=== PATIENT | male | born 1965 | race Caucasian/White ===

== ENCOUNTER 2018-06-03 11:27 | Inpatient (IN) | payer MEDICARE, MEDICAID ==
[~2018-06-03] VITALS: Ht 177.8 cm; Wt 97.7 kg
[2018-06-03] MEDS ORDERED: normal saline 1000ML IV soln IVB ONE (11:35)
[2018-06-03] MEDS ORDERED: piperacillin/tazo 3.375gm/50ml 50 ML IV ONE (11:47)
[2018-06-03] MEDS ORDERED: morphine 4 MG/ML inj SYRINge IV ONE (12:55)
[2018-06-03] MEDS ORDERED: lisinopril 10 MG tablet PO ONE (12:55)
[2018-06-03] MEDS ORDERED: ondansetron/PF 4mg/2ml inj IV ONE (12:55)
[2018-06-03 13:14] LABS: BASOPHILS # (AUTO) 0.1 X10'3 (0-0.2); EOSINOPHILS # (AUTO) 0.2 X10'3 (0-0.9); EOSINOPHILS % (AUTO) 1.6 % (0-6); HEMATOCRIT 43.9 % (42.0-52.0); HEMOGLOBIN 15.4 g/dl (14.0-17.9); LYMPHOCYTES # (AUTO) 2.1 X10'3 (1.1-4.8); LYMPHOCYTES % (AUTO) 19.2 % (21-51); MEAN CORPUSCULAR HEMOGLOBIN 31.1 PG (27.0-31.0); MEAN CORPUSCULAR HGB CONC 35.1 % (33.0-36.5); MEAN CORPUSCULAR VOLUME 88.6 FL (78-98); MEAN PLATELET VOLUME 6.9 FL (7.4-10.4); MONOCYTES # (AUTO) 0.7 X10'3 (0-0.9); MONOCYTES % (AUTO) 6.2 % (2-12); PLATELET COUNT 175 X10'3 (140-440); RED BLOOD COUNT 4.95 X10'6 (4.70-6.10); RED CELL DISTRIBUTION WIDTH 12.4 % (11.5-14.5); WHITE BLOOD COUNT 11.1 X10'3 (4.5-11.0)
[2018-06-03 13:24] LABS: PARTIAL THROMBOPLASTIN TIME 26 SECONDS (22-32); PROTHROMBIN TIME 10.3 SECONDS (9.0-12.0)
[2018-06-03 13:28] LABS: ALANINE AMINOTRANSFERASE 47 U/L (12-78); ALBUMIN 3.2 G/DL (3.4-5.0); ALKALINE PHOSPHATASE 57 IU/L (46-116); ANION GAP 10 (8-16); ASPARTATE AMINO TRANSFERASE 28 U/L (10-37); BILIRUBIN,TOTAL 0.6 MG/DL (0.1-1.0); BLOOD UREA NITROGEN 8 MG/DL (7-18); BUN/CREATININE RATIO 10.1 (5.4-32.0); CALCIUM 8.3 MG/DL (8.5-10.1); CHLORIDE 104 MMOL/L (99-107); CREATININE 0.79 MG/DL (0.60-1.10); GLUCOSE 139 MG/DL (70-104); MAGNESIUM 1.9 MG/DL (1.5-2.4); SODIUM 137 MMOL/L (135-145); TOTAL CARBON DIOXIDE 22.6 MMOL/L (24-32); TOTAL PROTEIN 6.5 G/DL (6.4-8.2); eGFR > 90 ML/MIN
[2018-06-03 13:59] LABS: CLARITY,URINE CLEAR (Clear); COLOR,URINE YELLOW (Yellow); GLUCOSE, URINE NEGATIVE (Neg); KETONES,URINE NEGATIVE (Neg); LEUKOCYTE ESTERASE ,URINE NEGATIVE (Neg); NITRITES, URINE NEGATIVE (Neg); OCCULT BLOOD,URINE NEGATIVE (Neg); PH,URINE 5.5 (4.8-8.0); PROTEIN,URINE NEGATIVE (Neg); UROBILINOGEN,URINE 0.2 E.U/dL (0.2-1.0)
[2018-06-03 14:00] LABS: UA COLLECTION TYPE CLN CATCH MIDSTREAM
[2018-06-03] MEDS ORDERED: dextrose ORAL solution 15 GM/59 ML bottle PO PRN ×2 (15:20)
[2018-06-03] MEDS ORDERED: morphine 4 MG/ML inj SYRINge IV PRN (15:20)
[2018-06-03] MEDS: K and/or MAG REPLACEMENT MC SCH (15:20)
[2018-06-03] MEDS ORDERED: magnesium hydroxide 30ml (MOM) UD suspension PO PRN (15:20)
[2018-06-03] MEDS ORDERED: magnesium 1gm/100ml D5W IVPB 100 ML IV PRN (15:20)
[2018-06-03] MEDS ORDERED: ondansetron/PF 4mg/2ml inj IV PRN (15:20)
[2018-06-03] MEDS ORDERED: magnesium Cl slow-release 64mg tablet PO PRN (15:20)
[2018-06-03] MEDS ORDERED: acetaminophen 325mg tablet PO PRN ×2 (15:20)
[2018-06-03] MEDS ORDERED: glucagon, human recombinant 1mg kit SUBCUT PRN (15:20)
[2018-06-03] MEDS ORDERED: insulin Lispro (HumaLOG) vial - multi-dose SQ SCH (15:20)
[2018-06-03] MEDS ORDERED: magnesium 4gm in 100ml NS 100 ML IV PRN (15:20)
[2018-06-03] MEDS ORDERED: potassium Cl 40MEQ/NS 500ml 500 ML IV PRN ×2 (15:20)
[2018-06-03] MEDS ORDERED: diphenhydrAMINE 25mg capsule PO PRN (15:20)
[2018-06-03] MEDS ORDERED: dextrose 50%-water 50ml dispensing syringe IV PRN ×2 (15:20)
[2018-06-03] MEDS ORDERED: mag hydrox/Alum hydrox/simeth 30ml oral suspension PO PRN (15:20)
[2018-06-03] MEDS ORDERED: potassium Cl 20 mEq SR tablet PO PRN ×2 (15:20)
[2018-06-03] MEDS ORDERED: MESSAGE TO PHARMACY PO ONE (15:20)
[2018-06-03 15:53] LABS: HEMOGLOBIN A1C 6.5 % (4.5-6.2)
[2018-06-03] MEDS: vancomycin inj 1,250 MG in normal saline 250ml IV soln 250 ML IV SCH (15:54)
[2018-06-03] MEDS: normal saline 1000ml 1,000 ML IV SCH (15:55)
[2018-06-03] MEDS ORDERED: GABA-532 PO (16:14)
[2018-06-03] MEDS ORDERED: LISI10TA4 PO (16:14)
[2018-06-03] MEDS ORDERED: METF500T6 PO (16:14)
[2018-06-03 20:00] VITALS: BP 128/78
[2018-06-03] MEDS: insulin glargine (Lantus) pen - multi-dose SQ SCH (21:00)
[2018-06-03] MEDS: piperacillin/tazo 3.375gm/50ml 50 ML IV SCH (21:04)
[2018-06-03] MEDS: gabapentin 300mg capsule PO SCH (21:05)
[2018-06-04] VITALS: BP 128/72
[2018-06-04] MEDS: vancomycin inj 1,250 MG in normal saline 250ml IV soln 250 ML IV SCH ×2 (00:40→09:19)
[2018-06-04] MEDS: normal saline 1000ml 1,000 ML IV SCH ×2 (01:16→11:27)
[2018-06-04] MEDS: piperacillin/tazo 3.375gm/50ml 50 ML IV SCH ×4 (02:43→20:37)
[2018-06-04 05:34] LABS: BASOPHILS % (AUTO) 0.2 % (0-1); EOSINOPHILS # (AUTO) 0.2 X10'3 (0-0.9); EOSINOPHILS % (AUTO) 2.4 % (0-6); HEMATOCRIT 41.9 % (42.0-52.0); HEMOGLOBIN 14.5 g/dl (14.0-17.9); LYMPHOCYTES # (AUTO) 2.3 X10'3 (1.1-4.8); LYMPHOCYTES % (AUTO) 21.9 % (21-51); MEAN CORPUSCULAR HGB CONC 34.7 % (33.0-36.5); MEAN CORPUSCULAR VOLUME 89.4 FL (78-98); MEAN PLATELET VOLUME 6.9 FL (7.4-10.4); MONOCYTES # (AUTO) 0.6 X10'3 (0-0.9); MONOCYTES % (AUTO) 6.2 % (2-12); NEUTROPHILS # (AUTO) 7.1 X10'3 (1.8-7.7); NEUTROPHILS % (AUTO) 69.3 % (42-75); PLATELET COUNT 197 X10'3 (140-440); RED BLOOD COUNT 4.68 X10'6 (4.70-6.10); RED CELL DISTRIBUTION WIDTH 12.6 % (11.5-14.5); WHITE BLOOD COUNT 10.3 X10'3 (4.5-11.0)
[2018-06-04 06:01] LABS: ALANINE AMINOTRANSFERASE 45 U/L (12-78); ALBUMIN 2.9 G/DL (3.4-5.0); ALBUMIN/GLOBULIN RATIO 0.9 (1.1-1.5); ALKALINE PHOSPHATASE 51 IU/L (46-116); ANION GAP 9 (8-16); ASPARTATE AMINO TRANSFERASE 22 U/L (10-37); BILIRUBIN,TOTAL 0.6 MG/DL (0.1-1.0); BLOOD UREA NITROGEN 8 MG/DL (7-18); BUN/CREATININE RATIO 8.4 (5.4-32.0); CALCIUM 8.2 MG/DL (8.5-10.1); CHLORIDE 105 MMOL/L (99-107); CHOL/HDL RATIO 3.4 (0.00-4.99); CHOLESTEROL 99 MG/DL (0-200); CREATININE 0.95 MG/DL (0.60-1.10); GLUCOSE 122 MG/DL (70-104); HDL CHOLESTEROL 29 MG/DL (35-60); LDL CHOLESTEROL 63 MG/DL (50-100); MAGNESIUM 1.6 MG/DL (1.5-2.4); PHOSPHORUS 3.4 MG/DL (2.3-4.5); POTASSIUM 4.1 MMOL/L (3.5-5.1); SODIUM 138 MMOL/L (135-145); TOTAL CARBON DIOXIDE 23.9 MMOL/L (24-32); TOTAL PROTEIN 6.2 G/DL (6.4-8.2); TRIGLYCERIDES 65 MG/DL (20-135); eGFR 84 ML/MIN
[2018-06-04] MEDS: lisinopril 10 MG tablet PO SCH (07:51)
[2018-06-04] MEDS: gabapentin 300mg capsule PO SCH ×3 (07:51→20:37)
[2018-06-04] MEDS: enoxaparin 40mg/0.4ml syringe SUBCUT SCH (07:52)
[2018-06-04] MEDS: K and/or MAG REPLACEMENT MC SCH (08:00)
[2018-06-04] MEDS: HYDROcodone/acetaminophen 5mg/325mg tablet PO PRN ×2 (08:04→17:04)
[2018-06-04 08:17] VITALS: BP 129/74
[2018-06-04 11:40] VITALS: BP 117/68
[2018-06-04] MEDS ORDERED: VANCOMYCIN LEVEL IV ONE (15:30)
[2018-06-04 20:00] VITALS: BP 126/81
[2018-06-04] MEDS: insulin glargine (Lantus) pen - multi-dose SQ SCH (20:31)
[2018-06-04] MEDS: lactobacillus rhamnosus 10,000 MMU CELLS/CAPSULE PO SCH (20:37)
[2018-06-05] VITALS: BP 127/81
[2018-06-05] MEDS: normal saline 1000ml 1,000 ML IV SCH ×2 (00:12→07:16)
[2018-06-05] MEDS: HYDROcodone/acetaminophen 5mg/325mg tablet PO PRN ×2 (00:15→04:55)
[2018-06-05] MEDS: piperacillin/tazo 3.375gm/50ml 50 ML IV SCH ×2 (04:48→09:03)
[2018-06-05 07:09] VITALS: BP 137/89
[2018-06-05 07:35] LABS: BASOPHILS # (AUTO) 0.1 X10'3 (0-0.2); BASOPHILS % (AUTO) 0.9 % (0-1); EOSINOPHILS # (AUTO) 0.3 X10'3 (0-0.9); EOSINOPHILS % (AUTO) 3.9 % (0-6); HEMATOCRIT 43.8 % (42.0-52.0); HEMOGLOBIN 14.7 g/dl (14.0-17.9); LYMPHOCYTES # (AUTO) 1.8 X10'3 (1.1-4.8); LYMPHOCYTES % (AUTO) 21.6 % (21-51); MEAN CORPUSCULAR HEMOGLOBIN 29.7 PG (27.0-31.0); MEAN CORPUSCULAR HGB CONC 33.5 % (33.0-36.5); MEAN CORPUSCULAR VOLUME 88.7 FL (78-98); MONOCYTES # (AUTO) 0.5 X10'3 (0-0.9); MONOCYTES % (AUTO) 6.4 % (2-12); NEUTROPHILS # (AUTO) 5.6 X10'3 (1.8-7.7); NEUTROPHILS % (AUTO) 67.2 % (42-75); PLATELET COUNT 220 X10'3 (140-440); RED BLOOD COUNT 4.94 X10'6 (4.70-6.10); RED CELL DISTRIBUTION WIDTH 11.9 % (11.5-14.5); WHITE BLOOD COUNT 8.3 X10'3 (4.5-11.0)
[2018-06-05 07:52] LABS: ALANINE AMINOTRANSFERASE 49 U/L (12-78); ALBUMIN/GLOBULIN RATIO 0.9 (1.1-1.5); ALKALINE PHOSPHATASE 46 IU/L (46-116); ANION GAP 7 (8-16); ASPARTATE AMINO TRANSFERASE 33 U/L (10-37); BILIRUBIN,TOTAL 0.7 MG/DL (0.1-1.0); BLOOD UREA NITROGEN 8 MG/DL (7-18); BUN/CREATININE RATIO 8.7 (5.4-32.0); CALCIUM 8.3 MG/DL (8.5-10.1); CHLORIDE 106 MMOL/L (99-107); CREATININE 0.92 MG/DL (0.60-1.10); GLUCOSE 116 MG/DL (70-104); MAGNESIUM 1.8 MG/DL (1.5-2.4); PHOSPHORUS 2.9 MG/DL (2.3-4.5); POTASSIUM 4.1 MMOL/L (3.5-5.1); SODIUM 138 MMOL/L (135-145); TOTAL CARBON DIOXIDE 25.1 MMOL/L (24-32); TOTAL PROTEIN 6.5 G/DL (6.4-8.2); eGFR 87 ML/MIN
[2018-06-05] MEDS: K and/or MAG REPLACEMENT MC SCH (08:00)
[2018-06-05] MEDS: lisinopril 10 MG tablet PO SCH (09:01)
[2018-06-05] MEDS: lactobacillus rhamnosus 10,000 MMU CELLS/CAPSULE PO SCH (09:01)
[2018-06-05] MEDS: gabapentin 300mg capsule PO SCH ×2 (09:01→13:00)
[2018-06-05] MEDS: enoxaparin 40mg/0.4ml syringe SUBCUT SCH (09:04)
[2018-06-05] MEDS ORDERED: CLIN-5 PO (10:30)
[2018-06-05 11:00] VITALS: BP 160/76
[2018-06-05] MEDS ORDERED: VANCOMYCIN LEVEL IV ONE (16:30)
== END 2018-06-05 13:50 | disposition home or self-care (01) | DRG 603 ==
LOC: ER 11:27 → ED HOLD 15:16 → EDBEDREQ 18:29 → SUR 3N 19:05
PROVIDERS: ADMIT Family Medicine; ATTEND Internal Medicine
DX: L03.114 Cellulitis of left upper limb (principal); F15.10 Other stimulant abuse, uncomplicated; E11.40 Type 2 diabetes mellitus with diabetic neuropathy, unspecified; I10 Essential (primary) hypertension; B19.20 Unspecified viral hepatitis C without hepatic coma; L03.012 Cellulitis of left finger; F17.200 Nicotine dependence, unspecified, uncomplicated; Z88.1 Allergy status to other antibiotic agents; Z79.899 Other long term (current) drug therapy; Z79.84 Long term (current) use of oral hypoglycemic drugs; Z87.442 Personal history of urinary calculi; Z80.7 Family history of other malignant neoplasms of lymphoid, hematopoietic and related tissues; Z71.6 Tobacco abuse counseling; Z71.51 Drug abuse counseling and surveillance of drug abuser
CPT/HCPCS: 36415; 71045; 80053; 80061; 80202; 81003; 82948; 83036; 83605; 83735; 84100; 84145; 85025; 85610; 85730; 87040; 87070; 93005; 93971; 96365; 96366; 96375; 99285; J1650; J1815; J2270; J2405; J2543; J3370; J7030

== ENCOUNTER 2019-12-29 02:43 | Emergency (ER) | payer MEDICARE, MEDICAID ==
[~2019-12-29] VITALS: Ht 177.8 cm; Wt 100.0 kg
[~2019-12-29 02:43] MED LIST: CLIN-5 PO; GABA-532 PO; LISI10TA4 PO; METF-950 PO
[2019-12-29] MEDS ORDERED: levoFLOXACIN 750MG TABLET PO ONE ×2 (03:20→03:30)
[2019-12-29 03:26] VITALS: BP 166/119
[2019-12-29] MEDS ORDERED: METH4TAB81 PO (03:37)
[2019-12-29] MEDS ORDERED: LEVO750T21 PO (03:37)
[2019-12-29] MEDS ORDERED: ALBU6.7H9 INH (03:37)
== END 2019-12-29 03:43 | disposition home or self-care (01) ==
LOC: ER 02:44
DX: J20.9 Acute bronchitis, unspecified (principal); F15.10 Other stimulant abuse, uncomplicated; Z86.19 Personal history of other infectious and parasitic diseases; Z72.89 Other problems related to lifestyle; Z79.2 Long term (current) use of antibiotics; Z79.899 Other long term (current) drug therapy; Z98.890 Other specified postprocedural states
CPT/HCPCS: 71046; 99283

== ENCOUNTER 2020-02-27 12:46 | Emergency (ER) | payer MEDICARE, MEDICAID ==
[~2020-02-27] VITALS: Ht 177.8 cm; Wt 97.0 kg
[~2020-02-27 12:46] MED LIST changes: +ALBU6.7H9 INH; +METH4TAB81 PO
[2020-02-27] MEDS ORDERED: ketorolac trometh. 30mg/ml inj. IV ONE (13:05)
[2020-02-27] MEDS ORDERED: ondansetron/PF 4mg/2ml inj IV ONE (13:05)
[2020-02-27 13:40] LABS: CLARITY,URINE SLIGHTLY CLOUDY (Clear); COLOR,URINE YELLOW (Yellow); GLUCOSE, URINE 100 mg/dl (Neg); KETONES,URINE NEGATIVE (Neg); LEUKOCYTE ESTERASE ,URINE TRACE (Neg); NITRITES, URINE NEGATIVE (Neg); OCCULT BLOOD,URINE LARGE (Neg); PH,URINE 6.5 (4.8-8.0); PROTEIN,URINE NEGATIVE (Neg)
[2020-02-27 13:41] LABS: UA COLLECTION TYPE VOIDED
[2020-02-27 13:48] LABS: BASOPHILS # (AUTO) 0.1 X10'3 (0-0.2); BASOPHILS % (AUTO) 0.6 % (0-1); EOSINOPHILS # (AUTO) 0.3 X10'3 (0-0.9); EOSINOPHILS % (AUTO) 3.1 % (0-6); HEMATOCRIT 46.7 % (42.0-52.0); HEMOGLOBIN 16.2 g/dl (14.0-17.9); LYMPHOCYTES % (AUTO) 19.2 % (21-51); MEAN CORPUSCULAR HGB CONC 34.7 g/dL (33.0-36.5); MEAN CORPUSCULAR VOLUME 86.5 FL (78-98); MEAN PLATELET VOLUME 6.8 FL (7.4-10.4); MONOCYTES # (AUTO) 0.8 X10'3 (0-0.9); MONOCYTES % (AUTO) 7.5 % (2-12); NEUTROPHILS # (AUTO) 7.2 X10'3 (1.8-7.7); NEUTROPHILS % (AUTO) 69.6 % (42-75); PLATELET COUNT 246 X10'3 (140-440); RED BLOOD COUNT 5.41 X10'6 (4.70-6.10); WHITE BLOOD COUNT 10.4 X10'3 (4.5-11.0)
[2020-02-27 13:49] LABS: MUCUS STRANDS FEW /LPF (Neg); SQUAMOUS EPITHELIAL CELL,UR FEW /LPF (FEW)
[2020-02-27 13:50] LABS: RBC,URINE TNTC /HPF (0-2)
[2020-02-27 13:51] LABS: BACTERIA,URINE FEW /HPF (Neg)
[2020-02-27 13:56] LABS: ALANINE AMINOTRANSFERASE 68 U/L (12-78); ALBUMIN/GLOBULIN RATIO 1.1 (1.1-1.5); ALKALINE PHOSPHATASE 81 IU/L (46-116); ANION GAP 7 (8-16); ASPARTATE AMINO TRANSFERASE 44 U/L (10-37); BILIRUBIN,TOTAL 0.6 MG/DL (0.1-1.0); BLOOD UREA NITROGEN 12 MG/DL (7-18); BUN/CREATININE RATIO 11.3 (5.4-32.0); CALCIUM 9.2 MG/DL (8.5-10.1); CHLORIDE 102 MMOL/L (99-107); CREATININE 1.06 MG/DL (0.60-1.10); GLUCOSE 175 MG/DL (70-104); POTASSIUM 3.7 MMOL/L (3.5-5.1); SODIUM 139 MMOL/L (135-145); TOTAL CARBON DIOXIDE 30.3 MMOL/L (24-32); TOTAL PROTEIN 7.5 G/DL (6.4-8.2); eGFR 73 ML/MIN
[2020-02-27] MEDS ORDERED: ONDA8TAB6 PO (14:10)
[2020-02-27] MEDS ORDERED: CEPH250T PO (14:10)
[2020-02-27] MEDS ORDERED: HYDR-3965 PO (14:10)
[2020-02-27] MEDS ORDERED: cephalexin 250mg capsule PO ONE (14:10)
[2020-02-27 14:30] VITALS: BP 152/101
== END 2020-02-27 14:35 | disposition home or self-care (01) ==
LOC: ER 12:46
DX: R10.9 Unspecified abdominal pain (principal); F15.90 Other stimulant use, unspecified, uncomplicated; Z86.19 Personal history of other infectious and parasitic diseases; Z98.890 Other specified postprocedural states; Z79.2 Long term (current) use of antibiotics; Z88.1 Allergy status to other antibiotic agents; Z79.899 Other long term (current) drug therapy
CPT/HCPCS: 36415; 80053; 81001; 85025; 87088; 96374; 96375; 99284; J1885; J2405

== ENCOUNTER 2020-03-13 20:50 | Emergency (ER) | payer MEDICARE, MEDICAID ==
[~2020-03-13] VITALS: Ht 177.8 cm; Wt 97.7 kg
[~2020-03-13 20:50] MED LIST changes: +HYDR-3965 PO; +ONDA8TAB6 PO
[2020-03-13 20:53] VITALS: BP 183/111
[2020-03-13] MEDS ORDERED: nitroGLYCERIN 0.4mg SUBLingual tab SL PRN (21:10)
[2020-03-13 21:23] LABS: BASOPHILS # (AUTO) 0.1 X10'3 (0-0.2); BASOPHILS % (AUTO) 0.3 % (0-1); EOSINOPHILS # (AUTO) 0.4 X10'3 (0-0.9); EOSINOPHILS % (AUTO) 2.4 % (0-6); HEMATOCRIT 44.6 % (42.0-52.0); HEMOGLOBIN 15.6 g/dl (14.0-17.9); LYMPHOCYTES # (AUTO) 2.3 X10'3 (1.1-4.8); LYMPHOCYTES % (AUTO) 15.5 % (21-51); MEAN CORPUSCULAR HEMOGLOBIN 30.2 PG (27.0-31.0); MEAN CORPUSCULAR VOLUME 86.3 FL (78-98); MEAN PLATELET VOLUME 6.9 FL (7.4-10.4); MONOCYTES # (AUTO) 0.7 X10'3 (0-0.9); MONOCYTES % (AUTO) 4.9 % (2-12); NEUTROPHILS # (AUTO) 11.6 X10'3 (1.8-7.7); NEUTROPHILS % (AUTO) 76.9 % (42-75); PLATELET COUNT 225 X10'3 (140-440); RED BLOOD COUNT 5.17 X10'6 (4.70-6.10); RED CELL DISTRIBUTION WIDTH 12.4 % (11.5-14.5)
[2020-03-13] MEDS ORDERED: ketorolac trometh. 30mg/ml inj. IV ONE (21:25)
[2020-03-13] MEDS ORDERED: LORazepam 2 mg/ml vial IV ONE (21:25)
[2020-03-13 21:33] LABS: ALANINE AMINOTRANSFERASE 49 U/L (12-78); ALBUMIN 3.7 G/DL (3.4-5.0); ALBUMIN/GLOBULIN RATIO 1.1 (1.1-1.5); ALKALINE PHOSPHATASE 91 IU/L (46-116); ANION GAP 7 (8-16); ASPARTATE AMINO TRANSFERASE 31 U/L (10-37); BILIRUBIN,TOTAL 0.4 MG/DL (0.1-1.0); BLOOD UREA NITROGEN 13 MG/DL (7-18); CALCIUM 9.4 MG/DL (8.5-10.1); CHLORIDE 103 MMOL/L (99-107); CREATININE 0.93 MG/DL (0.60-1.10); GLUCOSE 185 MG/DL (70-104); POTASSIUM 3.7 MMOL/L (3.5-5.1); SODIUM 140 MMOL/L (135-145); TOTAL CARBON DIOXIDE 30.4 MMOL/L (24-32); TOTAL PROTEIN 7.1 G/DL (6.4-8.2); eGFR 85 ML/MIN
[2020-03-13 21:48] LABS: D-DIMER 0.25 MG/L FEU (0-0.50)
== END 2020-03-13 22:37 | disposition home or self-care (01) ==
LOC: ER 20:50
DX: R07.89 Other chest pain (principal); R51 Headache; F17.210 Nicotine dependence, cigarettes, uncomplicated; F15.90 Other stimulant use, unspecified, uncomplicated; Z87.442 Personal history of urinary calculi; Z86.19 Personal history of other infectious and parasitic diseases; Z98.890 Other specified postprocedural states; Z72.89 Other problems related to lifestyle; Z88.1 Allergy status to other antibiotic agents; Z79.84 Long term (current) use of oral hypoglycemic drugs; Z79.899 Other long term (current) drug therapy
CPT/HCPCS: 36415; 71045; 80053; 82948; 84145; 84484; 85025; 85379; 93005; 96374; 96375; 99285; J1885; J2060

== ENCOUNTER 2020-04-29 10:53 | Emergency (ER) | payer MEDICARE, MEDICAID ==
[~2020-04-29] VITALS: Ht 177.8 cm; Wt 92.0 kg
[~2020-04-29 10:53] MED LIST changes: -HYDR-3965 PO
[2020-04-29 11:36] LABS: CLARITY,URINE SLIGHTLY CLOUDY (Clear); GLUCOSE, URINE 250 mg/dl (Neg); KETONES,URINE TRACE mg/dl (Neg); LEUKOCYTE ESTERASE ,URINE NEGATIVE (Neg); NITRITES, URINE NEGATIVE (Neg); OCCULT BLOOD,URINE LARGE (Neg); PH,URINE 6.5 (4.8-8.0); PROTEIN,URINE NEGATIVE (Neg)
[2020-04-29 11:37] LABS: COLOR,URINE DARK YELLOW (Yellow); UA COLLECTION TYPE CLN CATCH MIDSTREAM
[2020-04-29 11:44] LABS: BACTERIA,URINE FEW /HPF (Neg); MUCUS STRANDS FEW /LPF (Neg); RBC,URINE 50-100 /HPF (0-2); SQUAMOUS EPITHELIAL CELL,UR FEW /LPF (FEW); WBC,URINE 0-4 /HPF (0-4)
[2020-04-29 11:51] LABS: BASOPHILS % (AUTO) 0.3 % (0-1); EOSINOPHILS # (AUTO) 0.3 X10'3 (0-0.9); HEMATOCRIT 40.9 % (42.0-52.0); HEMOGLOBIN 14.3 g/dl (14.0-17.9); LYMPHOCYTES # (AUTO) 1.7 X10'3 (1.1-4.8); LYMPHOCYTES % (AUTO) 14.3 % (21-51); MEAN CORPUSCULAR HGB CONC 34.9 g/dL (33.0-36.5); MEAN CORPUSCULAR VOLUME 86.1 FL (78-98); MEAN PLATELET VOLUME 6.9 FL (7.4-10.4); MONOCYTES # (AUTO) 0.7 X10'3 (0-0.9); MONOCYTES % (AUTO) 6.5 % (2-12); NEUTROPHILS # (AUTO) 8.8 X10'3 (1.8-7.7); NEUTROPHILS % (AUTO) 75.9 % (42-75); PLATELET COUNT 214 X10'3 (140-440); RED BLOOD COUNT 4.75 X10'6 (4.70-6.10); RED CELL DISTRIBUTION WIDTH 12.5 % (11.5-14.5); WHITE BLOOD COUNT 11.6 X10'3 (4.5-11.0)
[2020-04-29 12:10] LABS: ALANINE AMINOTRANSFERASE 67 U/L (12-78); ALBUMIN 3.7 G/DL (3.4-5.0); ALBUMIN/GLOBULIN RATIO 1.1 (1.1-1.5); ALKALINE PHOSPHATASE 71 IU/L (46-116); ANION GAP 7 (8-16); ASPARTATE AMINO TRANSFERASE 44 U/L (10-37); BILIRUBIN,TOTAL 0.5 MG/DL (0.1-1.0); BLOOD UREA NITROGEN 18 MG/DL (7-18); BUN/CREATININE RATIO 13.4 (5.4-32.0); CALCIUM 8.8 MG/DL (8.5-10.1); CHLORIDE 105 MMOL/L (99-107); CREATININE 1.34 MG/DL (0.60-1.10); GLUCOSE 194 MG/DL (70-104); LIPASE 285 U/L (73-393); POTASSIUM 4.3 MMOL/L (3.5-5.1); SODIUM 138 MMOL/L (135-145); TOTAL CARBON DIOXIDE 26.4 MMOL/L (24-32); TOTAL PROTEIN 7.2 G/DL (6.4-8.2); eGFR 56 ML/MIN
[2020-04-29] MEDS ORDERED: ketorolac tromethamine 15mg/ml inj. IV ONE (12:10)
[2020-04-29] MEDS ORDERED: ACET-3068 PO (12:14)
[2020-04-29 13:22] VITALS: BP 143/92
== END 2020-04-29 13:23 | disposition home or self-care (01) ==
LOC: ER 10:53
DX: N20.0 Calculus of kidney (principal); F15.90 Other stimulant use, unspecified, uncomplicated; R10.9 Unspecified abdominal pain; Z86.19 Personal history of other infectious and parasitic diseases; Z72.89 Other problems related to lifestyle; Z79.2 Long term (current) use of antibiotics; Z79.899 Other long term (current) drug therapy
CPT/HCPCS: 36415; 80053; 81001; 83690; 85025; 96374; 99283; J1885

== ENCOUNTER 2020-05-04 20:25 | Emergency (ER) | payer MEDICARE, MEDICAID ==
[~2020-05-04] VITALS: Ht 177.8 cm; Wt 9.0 kg
[~2020-05-04 20:25] MED LIST changes: +ACET-3068 PO
[2020-05-04 21:18] LABS: BASOPHILS # (AUTO) 0.1 X10'3 (0-0.2); BASOPHILS % (AUTO) 0.7 % (0-1); EOSINOPHILS # (AUTO) 0.3 X10'3 (0-0.9); EOSINOPHILS % (AUTO) 2.3 % (0-6); HEMATOCRIT 42.4 % (42.0-52.0); HEMOGLOBIN 15.1 g/dl (14.0-17.9); LYMPHOCYTES % (AUTO) 15.1 % (21-51); MEAN CORPUSCULAR HEMOGLOBIN 30.3 PG (27.0-31.0); MEAN CORPUSCULAR HGB CONC 35.5 g/dL (33.0-36.5); MEAN CORPUSCULAR VOLUME 85.4 FL (78-98); MEAN PLATELET VOLUME 6.8 FL (7.4-10.4); MONOCYTES # (AUTO) 0.9 X10'3 (0-0.9); MONOCYTES % (AUTO) 6.6 % (2-12); NEUTROPHILS # (AUTO) 10.2 X10'3 (1.8-7.7); NEUTROPHILS % (AUTO) 75.3 % (42-75); PLATELET COUNT 237 X10'3 (140-440); RED BLOOD COUNT 4.97 X10'6 (4.70-6.10); RED CELL DISTRIBUTION WIDTH 12.9 % (11.5-14.5); WHITE BLOOD COUNT 13.6 X10'3 (4.5-11.0)
[2020-05-04 21:19] LABS: CLARITY,URINE SLIGHTLY CLOUDY (Clear); COLOR,URINE YELLOW (Yellow); GLUCOSE, URINE 500 mg/dl (Neg); KETONES,URINE NEGATIVE (Neg); LEUKOCYTE ESTERASE ,URINE NEGATIVE (Neg); NITRITES, URINE NEGATIVE (Neg); OCCULT BLOOD,URINE LARGE (Neg); PROTEIN,URINE TRACE mg/dl (Neg)
[2020-05-04 21:20] LABS: UA COLLECTION TYPE VOIDED
[2020-05-04 21:27] LABS: BACTERIA,URINE 1+ /HPF (Neg); RBC,URINE 20-50 /HPF (0-2); SQUAMOUS EPITHELIAL CELL,UR FEW /LPF (FEW); WBC,URINE 0-4 /HPF (0-4)
[2020-05-04 21:44] LABS: ALANINE AMINOTRANSFERASE 64 U/L (12-78); ALBUMIN 3.6 G/DL (3.4-5.0); ALKALINE PHOSPHATASE 69 IU/L (46-116); ANION GAP 9 (8-16); ASPARTATE AMINO TRANSFERASE 39 U/L (10-37); BILIRUBIN,TOTAL 0.5 MG/DL (0.1-1.0); BLOOD UREA NITROGEN 16 MG/DL (7-18); BUN/CREATININE RATIO 12.4 (5.4-32.0); CHLORIDE 100 MMOL/L (99-107); CREATININE 1.29 MG/DL (0.60-1.10); GLUCOSE 229 MG/DL (70-104); LIPASE 311 U/L (73-393); POTASSIUM 3.5 MMOL/L (3.5-5.1); SODIUM 133 MMOL/L (135-145); TOTAL CARBON DIOXIDE 24.4 MMOL/L (24-32); TOTAL PROTEIN 7.2 G/DL (6.4-8.2); eGFR 58 ML/MIN
[2020-05-04] MEDS ORDERED: normal saline 1000ML IV soln IVB ONE (22:30)
[2020-05-04] MEDS ORDERED: ondansetron/PF 4mg/2ml inj IV ONE (22:30)
[2020-05-04] MEDS ORDERED: morphine 4 MG/ML inj SYRINge IV ONE (22:30)
[2020-05-05] MEDS ORDERED: HYDR-4353 PO (00:01)
[2020-05-05 00:06] VITALS: BP 138/98
== END 2020-05-05 00:11 | disposition home or self-care (01) ==
LOC: ER 20:27
DX: N20.1 Calculus of ureter (principal); F15.90 Other stimulant use, unspecified, uncomplicated; Z86.19 Personal history of other infectious and parasitic diseases; Z88.8 Allergy status to other drugs, medicaments and biological substances; Z79.899 Other long term (current) drug therapy
CPT/HCPCS: 36415; 74176; 80053; 81001; 83690; 85025; 96374; 96375; 99284; J2270; J2405; J7030

== ENCOUNTER 2022-06-17 07:56 | Outpatient (CLI) | payer MEDICARE, MEDICAID ==
[~2022-06-17 07:56] MED LIST changes: -ACET-3068 PO; -CLIN-5 PO; +CLIN-91 PO; +LISI10TA27 PO; -LISI10TA4 PO; +METF-1203 PO; -METF-950 PO
== END 2022-06-17 23:59 | disposition home or self-care (01) ==
LOC: RAD 07:56
PROVIDERS: ATTEND General Practice
DX: I49.8 Other specified cardiac arrhythmias (principal); R00.8 Other abnormalities of heart beat; F11.20 Opioid dependence, uncomplicated
CPT/HCPCS: 93005

== ENCOUNTER 2023-03-04 03:28 | Emergency (ER) | payer MEDICARE, MEDICAID ==
[~2023-03-04 03:28] MED LIST changes: +ALBU6.7H14 INH; -ALBU6.7H9 INH
== END 2023-03-04 05:00 | disposition left against medical advice (07) ==
LOC: ER 03:29
DX: M79.89 Other specified soft tissue disorders (principal); Z53.21 Procedure and treatment not carried out due to patient leaving prior to being seen by health care provider

== ENCOUNTER 2023-03-17 19:29 | Emergency (ER) | payer MEDICARE, MEDICAID ==
[~2023-03-17] VITALS: Ht 177.8 cm; Wt 95.5 kg
[2023-03-17 20:14] LABS: CLARITY,URINE CLEAR (Clear); COLOR,URINE YELLOW (Yellow); GLUCOSE, URINE NEGATIVE (Neg); KETONES,URINE NEGATIVE (Neg); LEUKOCYTE ESTERASE ,URINE NEGATIVE (Neg); NITRITES, URINE NEGATIVE (Neg); OCCULT BLOOD,URINE NEGATIVE (Neg); PROTEIN,URINE NEGATIVE (Neg); UROBILINOGEN,URINE 0.2 E.U/dL (0.2-1.0)
[2023-03-17 20:20] LABS: UA COLLECTION TYPE CLN CATCH MIDSTREAM
[2023-03-17] MEDS ORDERED: HYDR-3965 PO (23:00)
[2023-03-17] MEDS ORDERED: FLO0.4C PO (23:00)
[2023-03-17 23:14] VITALS: BP 130/78
== END 2023-03-17 23:16 | disposition home or self-care (01) ==
LOC: ER 19:30
DX: N20.9 Urinary calculus, unspecified (principal); R22.31 Localized swelling, mass and lump, right upper limb; F15.20 Other stimulant dependence, uncomplicated; Z91.041 Radiographic dye allergy status; M79.89 Other specified soft tissue disorders
CPT/HCPCS: 74176; 81003; 99284

== ENCOUNTER 2023-10-21 21:24 | Emergency (ER) | payer MEDICARE, MEDICAID ==
[~2023-10-21] VITALS: Ht 177.8 cm; Wt 98.3 kg
[2023-10-22] MEDS ORDERED: ketorolac trometh inj. 60 MG/2 ML VIAL IM ONE
[2023-10-22] MEDS ORDERED: HYDROcodone/acetaminophen 5mg/325mg tablet PO ONE
[2023-10-22] MEDS ORDERED: HYDR-3965 PO (00:01)
[2023-10-22 00:29] VITALS: BP 155/95; PULSE 70; RESP 18; TEMP 97.9; O2SAT 98
== END 2023-10-22 00:30 | disposition home or self-care (01) ==
LOC: ER 21:25
DX: M25.512 Pain in left shoulder (principal); F15.90 Other stimulant use, unspecified, uncomplicated; Z87.442 Personal history of urinary calculi; Z72.89 Other problems related to lifestyle; Z88.1 Allergy status to other antibiotic agents; Z79.2 Long term (current) use of antibiotics; Z79.899 Other long term (current) drug therapy
CPT/HCPCS: 73030; 96372; 99283; J1885

== ENCOUNTER 2024-03-17 11:02 | Emergency (ER) | payer MEDICARE, MEDICAID ==
[~2024-03-17] VITALS: Ht 177.8 cm; Wt 95.5 kg
[~2024-03-17 11:02] MED LIST changes: +CLIN-232 PO; -CLIN-91 PO
[2024-03-17 11:05] VITALS: BP 160/86; PULSE 115; RESP 18; TEMP 99.3; O2SAT 96
== END 2024-03-17 14:52 | disposition left against medical advice (07) ==
LOC: ER 11:03
DX: R06.02 Shortness of breath (principal); R50.9 Fever, unspecified; R11.10 Vomiting, unspecified; Z53.21 Procedure and treatment not carried out due to patient leaving prior to being seen by health care provider; Z20.822 Contact with and (suspected) exposure to COVID-19
CPT/HCPCS: 36415; 87502; 87503; 87811; 93005

== ENCOUNTER 2024-03-18 15:32 | Emergency (ER) | payer MEDICARE, MEDICAID ==
[~2024-03-18] VITALS: Ht 172.7 cm; Wt 85.7 kg
[2024-03-18 15:55] VITALS: BP 113/70; PULSE 116; RESP 18; TEMP 97.8; O2SAT 95
[2024-03-18 16:31] LABS: BASOPHILS % (AUTO) 0.1 % (0-1); EOSINOPHILS % (AUTO) 0 % (0-6); HEMATOCRIT 37.8 % (42.0-52.0); HEMOGLOBIN 13.3 g/dl (14.0-17.9); LYMPHOCYTES # (AUTO) 0.7 X10'3 (1.1-4.8); MEAN CORPUSCULAR HEMOGLOBIN 29.6 PG (27.0-31.0); MEAN CORPUSCULAR HGB CONC 35.2 g/dL (33.0-36.5); MEAN PLATELET VOLUME 7.2 FL (7.4-10.4); MONOCYTES # (AUTO) 1.3 X10'3 (0-0.9); MONOCYTES % (AUTO) 9.2 % (2-12); NEUTROPHILS # (AUTO) 11.7 X10'3 (1.8-7.7); NEUTROPHILS % (AUTO) 85.7 % (42-75); PLATELET COUNT 199 X10'3 (140-440); RED CELL DISTRIBUTION WIDTH 12.4 % (11.5-14.5); WHITE BLOOD COUNT 13.6 X10'3 (4.5-11.0)
[2024-03-18 16:46] LABS: ALBUMIN 2.7 G/DL (3.4-5.0); ANION GAP 7 (8-16); BLOOD UREA NITROGEN 22 MG/DL (7-18); BUN/CREATININE RATIO 20.4 (10.0-20.0); CALCIUM 8.5 MG/DL (8.5-10.1); CHLORIDE 98 MMOL/L (99-107); CREATININE 1.08 MG/DL (0.60-1.10); GLUCOSE 247 MG/DL (70-104); PRO BRAIN NATRIURETIC PEPTIDE 883 PG/ML (0-125); SODIUM 133 MMOL/L (135-145); TOTAL CARBON DIOXIDE 28.1 MMOL/L (24-32); eCRCL 73 ML/MIN; eGFR 70 ML/MIN
[2024-03-18] MEDS ORDERED: POTASSIUM BICARB 20meq eff tab 20 MEQ TABLET.EFF PO STA (16:52)
== END 2024-03-18 19:32 | disposition left against medical advice (07) ==
LOC: ER 15:33
DX: R07.9 Chest pain, unspecified (principal); F15.90 Other stimulant use, unspecified, uncomplicated; F11.90 Opioid use, unspecified, uncomplicated; Z53.21 Procedure and treatment not carried out due to patient leaving prior to being seen by health care provider
CPT/HCPCS: 36415; 71045; 80048; 83880; 84484; 85025; 93005

== ENCOUNTER 2025-02-19 21:57 | Emergency (ER) | payer MEDICARE, MEDICAID ==
[~2025-02-19] VITALS: Ht 177.8 cm; Wt 98.2 kg
[2025-02-19 22:01] VITALS: BP 171/100; RESP 17
[2025-02-19] MEDS ORDERED: GABA-1405 (22:19)
[2025-02-19] MEDS ORDERED: HYDR12.55 PO (22:19)
[2025-02-19] MEDS ORDERED: METH-603 PO (22:20)
--- NOTE | 2025-02-19 22:49 | Physician Documentation ---
History of Present Illness ~ Chief Complaint: Rash Stated Complaint: RASH Time Seen by MD: 22:35 Primary Medical Doctor: amina yates bouton Source: patient HPI 59-year-old male who presents with an itchy rash to the back of his neck. He tells me he had a normal day, no new activities, no new exposures. This evening he was sitting at home when he suddenly developed itching to the back of his neck. He denies any history of similar. He denies any fevers or other infectious symptoms. No neck swelling or throat pain. He did not take any medications for this. He has an allergy to erythromycin, but no other known allergies. Medication Reconciliation Allergies: Coded Allergies: erythromycin base (Verified Allergy, Unknown, 03/17/23) Scheduled Albuterol Sulfate (Proventil Hfa), 2 PUFFS INH Q4H Cephalexin*Monohydrate* (Keflex*), 1 CAP PO TID Gabapentin (Gabapentin), 300 MG PO TID, (Reported) Lisinopril (Lisinopril), 10 MG PO DAILY, (Reported) Metformin HCl (Metformin HCl), 500 MG PO BID, (Reported) Miscellaneous Medications Gabapentin (Gabapentin), (Reported) Discontinued Medications Clindamycin HCl (Clindamycin HCl), 300 MG PO Q6H Discontinued Reason: patient no longer taking Methylprednisolone (Medrol Dosepak), 1 TABLET PO UD PRN for as directed Discontinued Reason: patient no longer taking Ondansetron Hcl (Zofran), 1 TAB PO Q8H Discontinued Reason: patient no longer taking Past Medical History Past Medical History: Bronchitis, Hepatitis C, Kidney Stones Past Surgical History: other Alcohol Use: Sober Drug Use: methamphetamine Lives In: Home Review of Systems Constitutional: Denies: fever Integumentary: Reports: rash, itching Physical Exam Vital Signs: Heart Rate: 81, Respiratory Rate: 17, BP: 171/100, Pulse Oximetry: 98, Weight: 98.200 Oxygen Flow Rate: 0 Physical Exam General: This is a pleasant and well-appearing man sitting quietly in bed HEENT: oropharynx is moist, no intraoral lesions Heart: Regular rate and rhythm, normal-appearing peripheral perfusion Lungs: Clear breath sounds bilateral without wheezing, normal work of breathing, normal oxygen saturation on room air Skin: On the posterior neck and lower scalp, there is a confluent area of erythema that is blanching and warm, nontender. No open wounds. Otherwise no rashes noted to the trunk, back, or extremities. Neuro: Alert and oriented, no focal deficits Psychiatric: Calm and cooperative with exam Progress Results/Orders Results/Orders Completed Orders - MERRY ROLDAN MD Diphenhydramine/Zinc Acetate (Benadryl 2 (02/20/25 08:00) Diphenhydramine Capsule (Benadryl Capsul (02/19/25 22:50) Cephalexin Capsule (Keflex Capsule) (02/20/25 01:30) Medications Received in ER Medications (Trade) Dose Ordered Sig/Rene Route PRN Reason Start Time Stop Time Status Last Admin Dose Admin (Benadryl 2% cream) 1 applic TID TP 02/20/25 08:00 02/20/25 01:51 DC 02/19/25 23:09 1 APPLIC (Benadryl capsule) 25 mg ONCE ONCE PO 02/19/25 22:50 02/19/25 22:51 DC 02/19/25 23:04 25 MG (Keflex capsule) 500 mg ONCE ONCE PO 02/20/25 01:30 02/20/25 01:31 DC 02/20/25 01:42 500 MG Vital Signs 02/19/25 02/20/25 22:01 01:49 Pulse 81 75 Resp 17 B/P (MAP) 171/100 Pulse Ox 98 100 O2 Flow Rate 0 Medical Decision Making Differential Dx:Considerations: Include: Atopic dermatitis, Drug reaction, Urticaria Additional Comment Differential includes cellulitis Assessment The patient presents with an acute rash to the back of his neck, which is itchy and red, appears most consistent with an allergic-type reaction or topical dermatitis. Cellulitis seems less likely. He was given Benadryl as well as topical Benadryl. This did not seem to change his rash. Given that his history does not provide a definite explanation for this rash, he will be treated with antibiotics for possible cellulitis as well as ongoing treatments for symptomatic relief of presumed topical dermatitis as well. There were no findings to suggest a more dangerous cause for these symptoms. He has a follow up appointment soon with his primary care doctor for re-evaluation, otherwise he will return here if he has significantly worsening symptoms. Departure Time of Disposition: :28 Disposition: 01 HOME / SELF CARE / HOMELESS Impression: Primary Impression: Skin irritation Condition: Stable Discharge Instructions: Cellulitis, Adult, Contact Dermatitis Referrals: NO PRIMARY CARE PROVIDER (PCP) Prescriptions Cephalexin*Monohydrate* (Keflex*) 500 Mg Capsule 1 CAP PO TID for 7 Days, #21 CAP Prov: MERRY ROLDAN MD 02/20/25 Comments The exact cause of your skin irritation and rashes unknown. It appears most consistent with irritation or inflammation, but could be related to developing cellulitis. Treatment plan: Please take the antibiotics as prescribed for 1 week, to treat possible skin infection. Please use antihistamines such as Benadryl or non drowsy allergy medications to help with itching. You can get these [id number] without a prescription, get the cheapest generic version. This includes medications like Viky or Claritin. Follow-up with your primary clinic appointment this week as scheduled for recheck If you have significantly worsening symptoms including worsening signs of pain or infection, return to the emergency department for a recheck. Education Educated: Patient Educated regarding: diagnosis, treatment, need for follow up Signature Scribe Signature: megan Attestation: MERRY Abrams MD Feb 19, 2025 22:49
[2025-02-19] MEDS: diphenhydrAMINE 25mg capsule PO ONE (23:04)
[2025-02-19] MEDS: diphenhydrAMINE 2%/zinc acetate cream TP SCH (23:09)
[2025-02-20] MEDS ORDERED: CEPH-585 PO (01:29)
[2025-02-20] MEDS: cephalexin 250mg capsule PO ONE (01:42)
[2025-02-20 01:49] VITALS: PULSE 75; O2SAT 100
== END 2025-02-20 01:51 | disposition home or self-care (01) ==
LOC: ER 21:57
DX: R21 Rash and other nonspecific skin eruption (principal); Z88.8 Allergy status to other drugs, medicaments and biological substances
CPT/HCPCS: 99284; Q0163